=== PATIENT | female | born 1985 | race Caucasian/White ===

== ENCOUNTER → 2020-07-31 | Day surgery (SDC) | payer OTHER ==
[~2020-07-31] MED LIST: BUPIVACAINE HCL 0.5% INJ 30 ML VIAL INJ ONE; CEFAZOLIN SOD 1 GM/NS 50ML 100 ML IV ONE; DEXAMETHASONE SOD PHOS INJ 4 MG/ML VIAL ONE; EPHEDRINE SULFATE INJ 50 MG/ML VIAL ONE; FENTANYL CITRATE/PF 100MCG/2 ML INJ ONE; KETOROLAC TROMETHAMINE 30 MG/ML VIAL ONE; LIDOCAINE HCL 2% LOCAL INJ 5 ML SDV VIAL INJ ONE; MIDAZOLAM HCL 2 MG/2 ML VIAL ONE; ONDANSETRON HCL INJ 2MG/ML 2ML 2 MG/ML VIAL ONE; PROPOFOL IV EMULSION 10 MG/ML 20 ML VIAL ONE; SEVOFLURANE INHAL SOLN 250 ML PEN BTL ONE
[2020-07-31 11:20] VITALS: BP 117/73
--- NOTE | 2020-08-09 14:27 | Operative Report ---
DATE OF PROCEDURE: 07/31/2020 SURGEON: Pratik Angela MD PREOPERATIVE DIAGNOSIS: Displaced 3rd and 4th left metatarsal fractures. POSTOPERATIVE DIAGNOSIS: Displaced 3rd and 4th left metatarsal fractures. OPERATIONS/PROCEDURES PERFORMED: 1. The patient underwent open reduction and internal fixation of the left 3rd and 4th metatarsal fractures. 2. Allograft bone grafting of the 3rd and 4th metatarsal fracture. QUALITY COORDINATOR: None. ANESTHESIA: General endotracheal intubation anesthesia. IV FLUIDS: Per the anesthesia record BRIEF DESCRIPTION OF THE PATIENT'S OPERATIVE PROCEDURE: Ms. Joyner was taken to the operating room and placed in supine position on the operating table. Following induction of general anesthesia as well as endotracheal intubation, the patient's left lower extremity was examined under anesthesia. She was found to have swelling involving the left foot. Fluoroscopic evaluation of the left foot demonstrated a displaced 3rd metatarsal fracture and an oblique fracture through the 4th metatarsal with minimal displacement. The patient's lower extremity was prepped and draped in standard surgical fashion. The case was begun by creating incision between the 3rd and 4th metatarsals. This incision was carried through the skin only. Blunt dissection used to deepen the incision and the extensor tendons were identified. These were mobilized and retracted away from the 3rd metatarsal. A combination of blunt and sharp dissection was then used to expose the patient's fracture site. The fracture edges were cleaned of callus formation. The wound was copiously irrigated. The medullary canal of the metatarsal was opened using a 0.062 K-wire both proximally and distally. The fracture was then held in a reduced position and a plate was contoured to the dorsal surface of the patient's injury. The plate was then affixed to the bone with combinations of cortical and locking screws. The reduction of the fracture as well as the position of the plate and screws were checked using fluoroscopy and found to be appropriate. Attention was then turned to the 4th metatarsal fracture. The dissection was then carried distally over the 4th metatarsal and again the extensor tendons were mobilized and retracted out of the surgical field. Combinations of both blunt and sharp dissection were used to expose the patient's fracture site. Significant healing had occurred with this injury and there was minimal displacement of the injury. Callus was resected and a plate was chosen for stabilization of the injury. The fracture was then stabilized again with combinations of cortical locking screws. The position of the hardware as well as reduction of the fracture was again assessed using fluoroscopy and found to be appropriate. The wound was copiously irrigated. The 3rd and 4th metatarsal injuries were then bone grafted with graft on putty. The wound was then closed in a multilayer fashion. Sterile dressings were applied as well as a well-padded splint. The patient was then awakened and taken to postanesthesia care unit in stable condition. MD PEG Castillo/JAYLA /[id number]
== END | disposition home or self-care (01) ==
LOC: OR 05:30
PROVIDERS: ATTEND Specialist
DX: S92.332A Displaced fracture of third metatarsal bone, left foot, initial encounter for closed fracture (principal); S92.342A Displaced fracture of fourth metatarsal bone, left foot, initial encounter for closed fracture; F41.9 Anxiety disorder, unspecified; V09.9XXA Pedestrian injured in unspecified transport accident, initial encounter; Z01.812 Encounter for preprocedural laboratory examination; Z11.59 Encounter for screening for other viral diseases
CPT/HCPCS: 28485 ×2; 76000; 81025; C1713 ×2; J0690; J1100; J1885; J2001; J2250; J2405; J2704; J3010; U0002